=== PATIENT | male | born 1990 | race Hispanic/Latino ===

== ENCOUNTER 2017-06-30 13:14 | Emergency (ER) | payer OTHER ==
[2017-06-30 13:15] VITALS: BMI 22.5
--- NOTE | 2017-06-30 13:42 | ED PDOC ---
Arrival/HPI - General Chief Complaint: Lower Extremity Problem/Injury Time Seen by Provider: 06/30/17 13:15 Historian: Patient - History of Present Illness Narrative History of Present Illness (Text): 06/30/17 13:41 26 year old male, whose past medical history includes left ankle surgery and heart murmur, who presents to the emergency department complaining of L knee pain x 2 days. Patient states came down on leg awkwardly while playing basketball, has had pain since that moment, ambulating since then but contines to have pain and swelling of the knee. Denies fever, cough, dyspnea, chest pain , previous DVT/PE, recent travel or surgery. Past Medical History - Provider Review Nursing Documentation Reviewed: Yes - Past History Past History: Non-Contributing - Infectious Disease Hx of Infectious Diseases: None - Tetanus Immunization Tetanus Immunization: Unknown - Cardiac Hx Cardiac Disorders: Yes Hx Heart Murmur: Yes - Neurological Other/Comment: Lymes - Psychiatric Hx Substance Use: Yes ([facility]) - Surgical History Hx Orthopedic Surgery: Yes (Left ankle) Family/Social History Family/Social History: No Known Family HX Smoking Status: Light Smoker < 10 Cigarettes Daily Hx Alcohol Use: Yes Frequency of alcohol use: Few days per week Hx Substance Use: Yes ([facility]) Allergies/Home Meds Allergies/Adverse Reactions: Allergies Penicillins Allergy (Verified 06/30/17 13:31) ANAPHYLAXIS Home Medications: Home Meds Medication Instructions Recorded Confirmed No Known Home Med 06/30/17 06/30/17 Review of Systems - Physician Review All systems were reviewed & negative as marked: Yes - Review of Systems Constitutional: absent: Fevers Respiratory: absent: SOB Physical Exam - Physical Exam Narrative Physical Exam (Text): Gen: NAD Head: NC Eyes: No scleral icterus ENT: MMM CV: Regular rate Resp: No accessory muscle use Skin: No cellulitis or ecchymosis. Extremities: L knee swelling and tenderness medically and to patella. Limited range of motion secondary to pain and swelling but able to range. Neuro: Alert, moves all extremities Vital Signs Temp Pulse Resp BP Pulse Ox 06/30/17 13:26 97.8 F 76 17 107/67 97 Medical Decision Making ED Course and Treatment: XR to exclude fracture. Toradol for pain. Advised f/u with Ortho for further evaluation and MRI for persistent pain. - RAD Interpretation Radiology Orders: 06/30/17 13:43 KNEE LEFT 2 VIEWS (AP & LAT) [RAD] Stat - Medication Orders Current Medication Orders: Discontinued Medications Ketorolac Tromethamine (Toradol) 60 mg IM STAT STA Stop: 06/30/17 13:43 Disposition/Present on Arrival - Present on Arrival Any Indicators Present on Arrival: No History of DVT/PE: No History of Uncontrolled Diabetes: No Urinary Catheter: No History of Decub. Ulcer: No History Surgical Site Infection Following: None - Disposition Have Diagnosis and Disposition been Completed?: Yes Diagnosis: Knee injury Disposition: HOME/ ROUTINE Disposition Time: 14:28 Patient Plan: Discharge Condition: STABLE Discharge Instructions (ExitCare): Knee Pain Additional Instructions: Accession No. : [id number] Patient Name / ID : RUDI BLAIR / [id number] Exam Date : 06/30/2017 13:55:42 ( Approved ) Study Comment : Sex / Age : M / 26Y Creator : Finesse Easley MD Dictator : Finesse Easley MD English Composition Instructor : Infrastructure Analyst : Finesse Easley MD Approver2 : Report Date : 06/30/2017 14:15:38 My Comment : PROCEDURE: Left Knee Radiographs. HISTORY: Pain. COMPARISON: None. FINDINGS: BONES: Normal. No fracture. JOINTS: Normal. No osteoarthritis. JOINT EFFUSION: None. OTHER FINDINGS: None. IMPRESSION: Normal radiographs of the left knee. Referrals: [facility] [place] [Outside] - Follow up with primary Forms: [employer]. (Surinamese), WORK NOTE
--- NOTE | 2017-06-30 14:17 | RAD ---
PROCEDURE: Left Knee Radiographs. HISTORY: Pain. COMPARISON: None. FINDINGS: BONES: Normal. No fracture. JOINTS: Normal. No osteoarthritis. JOINT EFFUSION: None. OTHER FINDINGS: None. IMPRESSION: Normal radiographs of the left knee.
[2017-06-30 16:16] VITALS: BP 112/75; PULSE 68; RESP 16; TEMP 98.1; O2SAT 99
== END 2017-06-30 14:30 | disposition home or self-care (01) ==
LOC: ED 13:14
DX: S89.92XA Unspecified injury of left lower leg, initial encounter (principal); Y93.67 Activity, basketball; F17.210 Nicotine dependence, cigarettes, uncomplicated
CPT/HCPCS: 73560; 96372; 99283; J1885

== ENCOUNTER 2017-09-10 16:46 | Observation (INO) | payer OTHER ==
[2017-09-10] MEDS ORDERED: Sodium Chloride 0.9% 1,000 ML IV STA (17:01)
[2017-09-10] MEDS ORDERED: Famotidine 20mg/50ml 20 MG/50 ML BAG IVPB STA (17:09)
--- NOTE | 2017-09-10 17:15 | ED PDOC ---
Arrival/HPI - General Chief Complaint: GI Problem Time Seen by Provider: 09/10/17 16:55 Historian: Patient - History of Present Illness Narrative History of Present Illness (Text): 09/10/17 17:07 27yr old male presents today with sudden onset of epigastric abdominal pain that started at 10pm last night. pt states the pain is sharp and constant. pt states around 1am he started having vomiting and diarrhea. pt states he has pain to the left upper back. denies chest pain. pt c/o subjective fevers/ chills. pt denies urinary symptoms. denies testicular pain. no headache, dizziness or weakness. no other complaints. pt states he took OTC medications for pain and vomiting. Time/Duration: Other (10pm last night) Past Medical History - Provider Review Nursing Documentation Reviewed: Yes - Travel History Have you recently traveled outside [place] w/in the past 3 mons?: No - Past History Past History: Non-Contributing - Infectious Disease Hx of Infectious Diseases: None - Tetanus Immunization Tetanus Immunization: Unknown - Cardiac Hx Cardiac Disorders: Yes Hx Heart Murmur: Yes - Neurological Other/Comment: Lymes - Psychiatric Hx Substance Use: Yes ([facility]) - Surgical History Hx Orthopedic Surgery: Yes (Left ankle) Family/Social History - Physician Review Nursing Documentation Reviewed: Yes Family/Social History: Unknown Family HX Smoking Status: Light Smoker < 10 Cigarettes Daily Hx Alcohol Use: Yes Hx Substance Use: Yes ([facility]) Allergies/Home Meds Allergies/Adverse Reactions: Allergies Penicillins Allergy (Verified 06/30/17 13:31) ANAPHYLAXIS Home Medications: Home Meds Medication Instructions Recorded Confirmed No Known Home Med 06/30/17 09/10/17 Review of Systems - Review of Systems Constitutional: Fevers. absent: Fatigue Respiratory: absent: SOB, Cough Cardiovascular: absent: Chest Pain, Palpitations Gastrointestinal: Abdominal Pain, Diarrhea, Nausea, Vomiting Genitourinary Male: absent: Dysuria, Frequency, Hematuria, Urinary Output Changes Musculoskeletal: Back Pain. absent: Arthralgias, Neck Pain Skin: absent: Rash, Pruritis Neurological: absent: Headache, Dizziness Psychiatric: absent: Anxiety, Depression, Suicidal Ideation Physical Exam Vital Signs Reviewed: Yes Vital Signs Temp Pulse Resp BP Pulse Ox 09/10/17 23:37 55 L 16 116/66 96 09/10/17 21:52 59 L 20 134/73 100 09/10/17 17:12 98.8 F 70 18 130/69 99 Temperature: Afebrile Blood Pressure: Normal Pulse: Regular Respiratory Rate: Normal Appearance: Positive for: Well-Appearing, Non-Toxic, Comfortable Pain Distress: None Mental Status: Positive for: Alert and Oriented X 3 - Systems Exam Head: Present: Atraumatic Mouth: Present: Moist Mucous Membranes Neck: Present: Normal Range of Motion Respiratory/Chest: Present: Clear to Auscultation, Good Air Exchange. No: Respiratory Distress, Accessory Muscle Use Cardiovascular: Present: Regular Rate and Rhythm, Normal S1, S2. No: Murmurs Abdomen: Present: Tenderness (+ epigastric, ruq, luq tenderness), Normal Bowel Sounds. No: Distention, Rebound, Guarding Back: Present: Normal Inspection. No: CVA Tenderness, Midline Tenderness, Paraspinal Tenderness Upper Extremity: Present: Normal Inspection Neurological: Present: GCS=15 Skin: Present: Warm, Dry, Normal Color. No: Rashes Psychiatric: Present: Alert, Oriented x 3 Medical Decision Making ED Course and Treatment: 09/10/17 17:16 Patient is nontoxic well appearing with stable vital signs presenting with ruq/ luq and epigastric abdominal pain CBC: wnl CMP: wnl Lipase: wnl EKG: Normal sinus rhythm at 64 bpm. With Urinalysis + ketones CAT scan: FINDINGS: LOWER THORAX: Unremarkable. LIVER: Unremarkable. No gross lesion or ductal dilatation. GALLBLADDER AND BILE DUCTS: Unremarkable. PANCREAS: Unremarkable. No gross lesion or ductal dilatation. SPLEEN: Unremarkable. ADRENALS: Unremarkable. No mass. KIDNEYS AND URETERS: Unremarkable. No hydronephrosis. No solid mass. VASCULATURE: Unremarkable. No aortic aneurysm. BOWEL: Mildly dilated proximal small bowel without focal point of obstruction. APPENDIX: No abnormalities to suggest acute appendicitis. No right lower quadrant inflammatory processes identified. PERITONEUM: Unremarkable. No free fluid. No free air. LYMPH NODES: Unremarkable. No enlarged lymph nodes. BLADDER: Unremarkable. REPRODUCTIVE: Unremarkable. BONES: No acute fracture. OTHER FINDINGS: None. IMPRESSION: Mildly dilated proximal small bowel without mechanical obstruction. Patient reassessment: pt with continued vomiting in er despite nausea mediations ; pt with continued abdominal pain despite toradol. pt refusing narcotic medications for pain. case discussed with dr. powell will admit observational status for surgical consult regarding intractable vomiting, dilated proximal small bowel. case discussed with medical csr case discussed with dr. carlin accepts observational status admission impression; intractable abdominal pain, intractable vomiting, abnormal ct abd/ pelvis admit observational status to med/surg 09/10/17 20:40 - Lab Interpretations Lab Results: 09/10/17 17:00 09/10/17 17:00 Lab Results 09/10/17 20:10: Urine Color yellow, Urine Appearance Clear, Urine pH 7.0, Ur Specific [place] <= 1.005, Urine Protein 30 H, Urine Glucose (UA) Negative, Urine Ketones 15 H, Urine Blood Negative, Urine Nitrate Negative, Urine Bilirubin Negative, Urine Urobilinogen 1.0 H, Ur Leukocyte Esterase Negative, Urine RBC 1 - 3, Urine WBC 2 - 5, Ur Epithelial Cells 3 - 4 09/10/17 17:00: WBC 11.1 H D, RBC 5.23, Hgb 15.9, Hct 44.3, MCV 84.7, MCH 30.4, MCHC 35.9, RDW 12.5, Plt Count 325, MPV 8.5, Gran % 74.2 H, Lymph % (Auto) 19.4 L, Callahan % (Auto) 5.9, Eos % (Auto) 0.3 L, Baso % (Auto) 0.2, Gran # 8.22 H, Lymph # (Auto) 2.2, Callahan # (Auto) 0.7 H, Eos # (Auto) 0.0, Baso # (Auto) 0.02 09/10/17 17:00: Sodium 143, Potassium 4.2, Chloride 101, Carbon Dioxide 26, Anion Gap 20, BUN 14, Creatinine 0.9, Est GFR ( Amer) > 60, Est GFR (Non- Af Amer) > 60, Random Glucose 127 H, Calcium 10.5, Total Bilirubin 0.6, AST 48, ALT 72 H, Alkaline Phosphatase 50, Total Protein 8.2, Albumin 5.0 H, Globulin 3.2, Albumin/Globulin Ratio 1.6, Lipase 47 - RAD Interpretation Radiology Orders: 09/10/17 17:01 CHEST PORTABLE [RAD] Stat 09/10/17 17:25 ABD & PELVIS IV CONTRAST ONLY [CT] Stat - Medication Orders Current Medication Orders: Heparin Sodium (Porcine) (Heparin) 5,000 units SC Q8 SANDI PRN Reason: Protocol Sodium Chloride (Sodium Chloride 0.9%) 1,000 mls @ 100 mls/hr IV .Q10H SANDI Last Admin: 09/10/17 22:10 Dose: 100 mls/hr eMAR Start Stop Document 09/10/17 22:10 RG (Rec: 09/10/17 22:33 RG [id number]) Intravenous Solution Start Date 09/10/17 Start Time 22:10 Ondansetron HCl (Zofran Inj) 4 mg IVP Q4H PRN PRN Reason: Nausea/Vomiting Pantoprazole Sodium (Protonix Inj) 40 mg IVP DAILY SANDI Discontinued Medications Sodium Chloride (Sodium Chloride 0.9%) 1,000 mls @ 999 mls/hr IV .Q1H1M STA Stop: 09/10/17 18:01 Last Admin: 09/10/17 17:20 Dose: 999 mls/hr eMAR Start Stop Document 09/10/17 17:20 GMD (Rec: 09/10/17 17:20 GMD [id number]) Intravenous Solution Start Date 09/10/17 Start Time 17:20 End Date 09/10/17 End time 18:20 Total Infusion Time 60 Famotidine (Pepcid 20mg/50ml Premix) 20 mg in 50 mls @ 200 mls/hr IVPB STAT STA Stop: 09/10/17 17:23 Last Admin: 09/10/17 17:19 Dose: 200 mls/hr eMAR Start Stop Document 09/10/17 17:19 GMD (Rec: 09/10/17 17:19 GMD [id number]) Intravenous Solution Start Date 09/10/17 Start Time 17:19 End Date 09/10/17 End time 17:34 Total Infusion Time 15 Ketorolac Tromethamine (Toradol) 30 mg IVP STAT STA Stop: 09/10/17 19:08 Last Admin: 09/10/17 19:47 Dose: 30 mg MAR Pain Assessment Document 09/10/17 19:47 RG (Rec: 09/10/17 19:48 RG [id number]) Pain Reassessment Is this a pain reassessment? Yes Presence of Pain Presence of Pain Yes Pain Scale Used Pain Scale Used Numeric Location Upper or Lower Upper Pain Location Body Site Abdomen Description Description Intermittent Pain Behavior Rubbing Site Alleviating Factors/Management Position Change Techniques IVP Administration Document 09/10/17 19:47 RG (Rec: 09/10/17 19:48 [facility] [id number]) Charges for Administration # of IVP Administrations 1 Ondansetron HCl (Zofran Inj) 4 mg IVP STAT STA Stop: 09/10/17 17:02 Last Admin: 09/10/17 17:19 Dose: 4 mg IVP Administration Document 09/10/17 17:19 GMD (Rec: 09/10/17 17:19 GMD [id number]) Charges for Administration # of IVP Administrations 1 Ondansetron HCl (Zofran Inj) 4 mg IVP STAT STA Stop: 09/10/17 20:19 Last Admin: 09/10/17 22:00 Dose: 4 mg IVP Administration Document 09/10/17 22:00 RG (Rec: 09/10/17 22:32 RG [id number]) Charges for Administration # of IVP Administrations 1 Disposition/Present on Arrival - Present on Arrival Any Indicators Present on Arrival: No History of DVT/PE: No History of Uncontrolled Diabetes: No Urinary Catheter: No History of Decub. Ulcer: No History Surgical Site Infection Following: None - Disposition Have Diagnosis and Disposition been Completed?: Yes Diagnosis: Intractable abdominal pain, Intractable vomiting Disposition: HOSPITALIZED Disposition Time: 20:00 Patient Plan: Observation Condition: FAIR
--- NOTE | 2017-09-10 17:18 | RAD ---
HISTORY: Abdominal pain COMPARISON: No prior. FINDINGS: LUNGS: No active pulmonary disease. PLEURA: No significant pleural effusion identified, no pneumothorax apparent. CARDIOVASCULAR: Normal. OSSEOUS STRUCTURES: No significant abnormalities. VISUALIZED UPPER ABDOMEN: Normal. OTHER FINDINGS: None. IMPRESSION: No active disease.
[2017-09-10 17:28] LABS: BASO # 0.02 K/mm3 (0.0-2.0); BASO % 0.2 % (0.0-3.0); EOS % 0.3 % (1.5-5.0); GRAN # 8.22 (1.4-6.5); GRAN % 74.2 % (50.0-68.0); HEMOGLOBIN 15.9 g/dL (14.0-18.0); LYMPH # 2.2 (1.2-3.4); LYMPH % 19.4 % (22.0-35.0); MEAN CELL VOLUME 84.7 fl (80.0-105.0); MEAN CORPUSCULAR HEMOGLOBIN 30.4 pg (25.0-35.0); MEAN CORPUSCULAR HGB CONC 35.9 g/dl (31.0-37.0); MEAN PLATELET VOLUME 8.5 fl (7.0-11.0); MONO # 0.7 (0.1-0.6); MONO % 5.9 % (1.0-6.0); RBC 5.23 10^6/uL (3.5-6.1); RED CELL DISTRIBUTION WIDTH 12.5 % (11.5-14.5); WHITE BLOOD COUNT 11.1 10^3/ul (4.5-11.0)
[2017-09-10 17:36] LABS: ALB/GLOB RATIO 1.6 (1.1-1.8); ALT/SGPT 72 U/L (7-56); AST/SGOT 48 U/L (17-59); BLOOD UREA NITROGEN 14 mg/dL (7-21); CALCIUM 10.5 mg/dL (8.4-10.5); GFR AFRICAN-AMERICAN > 60; GFR NON-AFRICAN AMERICAN > 60; LIPASE 47 U/L (23-300)
[2017-09-10] MEDS ORDERED: Iohexol 350 MG/100 ML VIAL ONE (17:54)
--- NOTE | 2017-09-10 19:01 | CT ---
PROCEDURE: CT Abdomen and Pelvis with contrast HISTORY: Severe stomach and abdominal pain. COMPARISON: None. TECHNIQUE: Contrast dose: 100 cc Omnipaque 350 Radiation dose: Total exam DLP = 469.81 mGy-cm. This CT exam was performed using one or more of the following dose reduction techniques: Automated exposure control, adjustment of the mA and/or kV according to patient size, and/or use of iterative reconstruction technique. FINDINGS: LOWER THORAX: Unremarkable. LIVER: Unremarkable. No gross lesion or ductal dilatation. GALLBLADDER AND BILE DUCTS: Unremarkable. PANCREAS: Unremarkable. No gross lesion or ductal dilatation. SPLEEN: Unremarkable. ADRENALS: Unremarkable. No mass. KIDNEYS AND URETERS: Unremarkable. No hydronephrosis. No solid mass. VASCULATURE: Unremarkable. No aortic aneurysm. BOWEL: Mildly dilated proximal small bowel without focal point of obstruction. APPENDIX: No abnormalities to suggest acute appendicitis. No right lower quadrant inflammatory processes identified. PERITONEUM: Unremarkable. No free fluid. No free air. LYMPH NODES: Unremarkable. No enlarged lymph nodes. BLADDER: Unremarkable. REPRODUCTIVE: Unremarkable. BONES: No acute fracture. OTHER FINDINGS: None. IMPRESSION: Mildly dilated proximal small bowel without mechanical obstruction.
[2017-09-10 20:25] LABS: URINE BILIRUBIN NEGATIVE (NEGATIVE); URINE BLOOD NEGATIVE (NEGATIVE); URINE GLUCOSE (UA) NEGATIVE (NEGATIVE); URINE LEUKOCYTE ESTERASE NEGATIVE Leu/uL (NEGATIVE); URINE PROTEIN 30 mg/dL (<30 mg/dL)
[2017-09-10 20:31] LABS: URINE APPEARANCE CLEAR (CLEAR)
--- NOTE | 2017-09-10 21:38 | CARD ---
APPROVED REPORT EKG Measurement Heart [id number] <Conclusion> Normal sinus rhythm Possible Left atrial enlargement Rightward axis Borderline ECG
[2017-09-10] MEDS: Sodium Chloride 0.9% 1,000 ML IV SCH (22:10)
--- NOTE | 2017-09-11 00:34 | CP.PCM.HP ---
<Steven Guthrie - Last Filed: 09/11/17 00:34> History of Present Illness - History of Present Illness History of Present Illness: CC: abominal pain HPI: 27 year old male with no past medical history who presents with 24 hour history of mid epigastric abdominal pain. Pain is reported as sharp intermittent pain. Patient reports nausea, vomiting NBNB emesis. Able to tolerate liquids but unable to tolerate solids. Reports episodes of diarrhea, one episode of fever 101F at home. Patient denies he has these episodes about once a month where he has mid epigastric discomfort and inability to tolerate PO intake. Patient eats mostly meat and pasta and avoids fruits and vegetables. 12 point ROS benign other than mentioned in HPI. ED COURSE: Patient given IV zofran, toradol and abdominal CT is unremarkable except for proximal small bowel dilatation without mechanical obstruction. PMH: Denies PSH: Denies SOCHX: Tobacco: 0.5 PPD, ETOH: 14 beers a week, ID: THC ALL: PCN MEDS: Denies Present on Admission - Present on Admission Any Indicators Present on Admission: No Review of Systems - Review of Systems All systems: reviewed and no additional remarkable complaints except (as mentioned in HPI) Past Patient History - Infectious Disease Hx of Infectious Diseases: None - Tetanus Immunizations Tetanus Immunization: Unknown - Past Social History Smoking Status: Light Smoker < 10 Cigarettes Daily - CARDIAC Hx Cardiac Disorders: Yes Hx Heart Murmur: Yes - NEUROLOGICAL Other/Comment: Lymes - PSYCHIATRIC Hx Substance Use: Yes ([facility]) - SURGICAL HISTORY Hx Orthopedic Surgery: Yes (Left ankle) Meds Allergies/Adverse Reactions: Allergies Allergy/AdvReac Type Severity Reaction Status Date / Time Penicillins Allergy ANAPHYLAXIS Verified 06/30/17 13:31 Physical Exam - Constitutional Appears: Non-toxic - Head Exam Head Exam: ATRAUMATIC, NORMAL INSPECTION, NORMOCEPHALIC - Eye Exam Eye Exam: EOMI, PERRL - ENT Exam ENT Exam: Mucous Membranes Moist - Respiratory Exam Respiratory Exam: Clear to Auscultation Bilateral, NORMAL BREATHING PATTERN. absent: Rhonchi, Wheezes - Cardiovascular Exam Cardiovascular Exam: REGULAR RHYTHM, +S1, +S2, Systolic Murmur - GI/Abdominal Exam GI & Abdominal Exam: Diminished Bowel Sounds, Guarding, Soft, Tenderness (mid epigastric). absent: Distended, Firm - Extremities Exam Extremities exam: Positive for: normal capillary refill, pedal pulses present. Negative for: calf tenderness, tenderness - Back Exam Back exam: absent: CVA tenderness (L), CVA tenderness (R), paraspinal tenderness , vertebral tenderness - Neurological Exam Neurological exam: Alert, CN II-XII Intact, Normal Gait, Oriented x3, Reflexes Normal - Psychiatric Exam Psychiatric exam: Normal Affect, Normal Mood - Skin Skin Exam: Dry, Warm Additional comments: Multiple tattoos present Results - Vital Signs Recent Vital Signs: Last Vital Signs Temp 98.8 F 09/10/17 17:12 Pulse 55 L 09/10/17 23:37 Resp 16 09/10/17 23:37 BP 116/66 09/10/17 23:37 Pulse Ox 96 09/10/17 23:37 - Labs Result Diagrams: 09/10/17 17:00 09/10/17 17:00 Assessment & Plan - Assessment and Plan (Free Text) Assessment: 27 year old male with no past medical history who presents with 24 hour history of mid epigastric abdominal pain. Abdominal/Pelvis CT showing proximal small bowel dilatation without obstruction. Patient admitted for gastroenteritis. Plan: 1. Gastroenteritis - Afebrile, WBC 11.1, n/v, diarrhea - Abdominal/Pelvis CT showing: - Mildly dilated proximal small bowel without mechanical obstruction - Clear Liquid diet, advance as tolerated - Zofran 4mg q4H - Avoid opiate medication for pain at patient request 2. Hx of opiate abuse - UDS DVT ppx: Heparin SC GI ppx: Protonix - Date & Time Date: 09/11/17 Time: 11:00 <Dionisio Herring - Last Filed: 09/12/17 00:07> Results - Vital Signs Recent Vital Signs: Last Vital Signs Temp 98.2 F 09/11/17 01:22 Pulse 58 L 09/11/17 01:22 Resp 20 09/11/17 01:22 BP 137/85 09/11/17 01:22 Pulse Ox 96 09/10/17 23:37 - Labs Result Diagrams: 09/11/17 06:45 09/11/17 06:45
[2017-09-11 03:25] VITALS: BMI 22.7
[2017-09-11 07:15] LABS: BASO # 0.05 K/mm3 (0.0-2.0); BASO % 0.7 % (0.0-3.0); EOS # 0.1 (0.0-0.7); EOS % 1.6 % (1.5-5.0); GRAN # 4.72 (1.4-6.5); GRAN % 61.4 % (50.0-68.0); HEMOGLOBIN 14.7 g/dL (14.0-18.0); LYMPH # 2.2 (1.2-3.4); LYMPH % 28.6 % (22.0-35.0); MEAN CELL VOLUME 85.6 fl (80.0-105.0); MEAN CORPUSCULAR HEMOGLOBIN 29.8 pg (25.0-35.0); MEAN CORPUSCULAR HGB CONC 34.8 g/dl (31.0-37.0); MEAN PLATELET VOLUME 8.5 fl (7.0-11.0); MONO # 0.6 (0.1-0.6); MONO % 7.7 % (1.0-6.0); RBC 4.93 10^6/uL (3.5-6.1); RED CELL DISTRIBUTION WIDTH 12.8 % (11.5-14.5); WHITE BLOOD COUNT 7.7 10^3/ul (4.5-11.0)
[2017-09-11 07:33] LABS: INR 1.14 (0.93-1.08); PROTHROMBIN TIME 13.1 SECONDS (9.4-12.5)
[2017-09-11 07:37] LABS: ALB/GLOB RATIO 1.6 (1.1-1.8); ALBUMIN 4.5 g/dL (3.0-4.8); ALT/SGPT 63 U/L (7-56); AST/SGOT 44 U/L (17-59); BLOOD UREA NITROGEN 13 mg/dL (7-21); CALCIUM 9.7 mg/dL (8.4-10.5); GFR AFRICAN-AMERICAN > 60; GFR NON-AFRICAN AMERICAN > 60
[2017-09-11] MEDS: Sodium Chloride 0.9% 1,000 ML IV SCH (09:17)
[2017-09-11 12:09] LABS: HEPATITIS B SURFACE AG Negative (NEGATIVE)
[2017-09-11 12:15] LABS: HEPATITIS A IGM NEGATIVE (NEGATIVE); HEPATITIS B CORE AB NEGATIVE (NEGATIVE)
[2017-09-11 12:27] LABS: HEPATITIS C ANTIBODY NEGATIVE (NEGATIVE)
--- NOTE | 2017-09-11 13:04 | CP.PCM.CON ---
<Nikki Warren - Last Filed: 09/11/17 19:51> History of Present Illness - History of Present Illness History of Present Illness: Seen and examined at the bedside earlier today, chart reviewed. Request for GI consult is for small bowel dilatation. HPI: This is a 27-year-old male with no pertinent past medical history came to the emergency room with complaints of worsening epigastric abdominal pain. The patient reported that Thursday night at 9 PM started developing sharp epigastric pain. Patient recalls eating at night only cheeseburger that was fully cooked as per patient. Around 1:30 AM he experienced nausea, vomiting, diarrhea as well as fever of 101 at home. Patient continued to have the pain and was not being relieved came to the emergency room. He reports vomiting at least 20 times with combination of gagging and and vomitus. This morning he reported only being able to tolerate half of an apple juice, he vomited and noticed small amount of "specks" of blood. he does endorse having symptoms of heartburn, takes Tums, he has chronic use of NSAIDs, he takes this for his knee pain he recently had an ACL tear, but states that he play sports and always takes NSAIDs. He also drinks at least 2 beers daily since he was young. he does reports stomach flareups intermittently, usually at night and may get an episode of diarrhea he does not really notice any bleeding because as per patient he does not check. Complains of about 10 pound weight loss since he had injury to his knee. He endorses that his mother has Crohn's disease as well as uncles. On admission he had a CT scan of abdomen and pelvis which reported a mildly dilated proximal small bowel without mechanical obstruction. Patient since admission and has not had any episodes of diarrhea. Past medical history: ACL tear, heartburn, hear murmur Surgical history: Denies cardiac or abdominal surgery, never had EGD or colonoscopy Allergies: Penicillin Medications: Reviewed as per MAR Family history: Mother with Crohn's disease, uncles with Crohn disease, as per patient his father is adopted they are not aware of his family history Social history: Patient smokes half a pack a day, patient does junk about 2 beers a day for many years now, patient endorses he smokes marijuana loss smoke was yesterday ROS: Systems review is positive finding see HPI Past Patient History - Infectious Disease Hx of Infectious Diseases: None - Tetanus Immunizations Tetanus Immunization: Unknown - Past Social History Smoking Status: Light Smoker < 10 Cigarettes Daily - CARDIAC Hx Cardiac Disorders: Yes Hx Heart Murmur: Yes - NEUROLOGICAL Other/Comment: Lymes - MUSCULOSKELETAL/RHEUMATOLOGICAL Hx Falls: No - PSYCHIATRIC Hx Substance Use: Yes ([facility]) - SURGICAL HISTORY Hx Orthopedic Surgery: Yes (Left ankle) Meds Allergies/Adverse Reactions: Allergies Allergy/AdvReac Type Severity Reaction Status Date / Time Penicillins Allergy ANAPHYLAXIS Verified 06/30/17 13:31 - Medications Medications: Current Medications Sodium Chloride (Sodium Chloride 0.9%) 1,000 mls @ 100 mls/hr IV .Q10H [facility] Last Admin: 09/11/17 09:17 Dose: 100 mls/hr Ondansetron HCl (Zofran Inj) 4 mg IVP Q4H PRN PRN Reason: Nausea/Vomiting Last Admin: 09/11/17 10:59 Dose: 4 mg Pantoprazole Sodium (Protonix Inj) 40 mg IVP DAILY [facility] Last Admin: 09/11/17 09:12 Dose: 40 mg Physical Exam - Constitutional Appears: No Acute Distress - Head Exam Head Exam: NORMOCEPHALIC - Eye Exam Eye Exam: Normal appearance. absent: Scleral icterus - ENT Exam ENT Exam: Mucous Membranes Moist - Neck Exam Neck exam: Positive for: Normal Inspection - Respiratory Exam Respiratory Exam: NORMAL BREATHING PATTERN. absent: Respiratory Distress - Cardiovascular Exam Cardiovascular Exam: +S1, +S2 - GI/Abdominal Exam GI & Abdominal Exam: Normal Bowel Sounds, Soft, Tenderness (epigastric). absent : Distended, Guarding, Organomegaly, Rebound - Extremities Exam Extremities exam: Positive for: pedal pulses present. Negative for: calf tenderness, pedal edema - Neurological Exam Neurological exam: Alert, Oriented x3 - Skin Skin Exam: Dry, Warm Results - Vital Signs Recent Vital Signs: Last Vital Signs Temp 98 F 09/11/17 06:00 Pulse 43 L 09/11/17 06:00 Resp 18 09/11/17 06:00 BP 137/81 09/11/17 06:00 Pulse Ox 97 09/11/17 06:00 - Labs Result Diagrams: 09/11/17 06:45 09/11/17 06:45 Labs: Laboratory Results - last 24 hr 09/11/17 09/11/17 09/11/17 06:45 06:45 06:45 WBC 7.7 D RBC 4.93 Hgb 14.7 Hct 42.2 MCV 85.6 MCH 29.8 MCHC 34.8 RDW 12.8 Plt Count 267 MPV 8.5 Gran % 61.4 Lymph % (Auto) 28.6 [place] % (Auto) 7.7 H Eos % (Auto) 1.6 Baso % (Auto) 0.7 Gran # 4.72 Lymph # (Auto) 2.2 [place] # (Auto) 0.6 Eos # (Auto) 0.1 Baso # (Auto) 0.05 PT 13.1 H INR 1.14 H Sodium 144 Potassium 4.4 Chloride 105 Carbon Dioxide 25 Anion Gap 18 BUN 13 Creatinine 0.9 Est GFR ( Amer) > 60 Est GFR (Non-Af Amer) > 60 Random Glucose 115 H Calcium 9.7 Total Bilirubin 0.7 AST 44 ALT 63 H Alkaline Phosphatase 44 Total Protein 7.2 Albumin 4.5 Globulin 2.7 Albumin/Globulin Ratio 1.6 Assessment & Plan - Assessment and Plan (Free Text) Assessment: Assessment: Epigastric Pain, status post CT scan showing small bowel dilatation no mechanical obstruction, differentials to consider his peptic ulcer disease Probable gastroenteritis History of NSAID use torn ACL Chronic alcohol use Plan: Clear liquid as tolerated Continue PPI Avoid NSAIDs Monitor H&H and for overt GI bleed Decrease alcohol intake Discussed with patient he would benefit from endoscopy and colonoscopy with history of NSAID use and heartburn as well as intermittent diarrhea and family history of Crohn's disease. Case discussed with medical team. Thank you for this consult and for allowing us to participate in the patient's care, further recommendations based upon clinical course. Seen and discussed with Dr. Rasheed. ADDEDNEUM: started on IV antibiotics: see order, blood culture prior to start of antibiotics. <Mariangel Rasheed V - Last Filed: 09/12/17 03:19> Meds - Medications Medications: Current Medications Sodium Chloride (Sodium Chloride 0.9%) 1,000 mls @ 100 mls/hr IV .Q10H [facility] Last Admin: 09/11/17 09:17 Dose: 100 mls/hr Metronidazole (Flagyl) 500 mg in 100 mls @ 100 mls/hr IVPB Q8 [facility] PRN Reason: Protocol Last Admin: 09/11/17 22:33 Dose: 100 mls/hr Levofloxacin/Dextrose (Levaquin 500mg) 500 mg in 100 mls @ 100 mls/hr IVPB DAILY [facility] PRN Reason: Protocol Last Admin: 09/11/17 21:30 Dose: 100 mls/hr Ondansetron HCl (Zofran Inj) 4 mg IVP Q4H PRN PRN Reason: Nausea/Vomiting Last Admin: 09/11/17 10:59 Dose: 4 mg Pantoprazole Sodium (Protonix Inj) 40 mg IVP DAILY [facility] Last Admin: 09/11/17 09:12 Dose: 40 mg Results - Vital Signs Recent Vital Signs: Last Vital Signs Temp 98.1 F 09/11/17 22:00 Pulse 56 L 09/11/17 22:00 Resp 16 09/11/17 22:00 BP 119/73 09/11/17 22:00 Pulse Ox 99 09/11/17 22:00 - Labs Result Diagrams: 09/11/17 06:45 09/11/17 06:45 Labs: Laboratory Results - last 24 hr 09/11/17 09/11/17 09/11/17 06:45 06:45 06:45 WBC 7.7 D RBC 4.93 Hgb 14.7 Hct 42.2 MCV 85.6 MCH 29.8 MCHC 34.8 RDW 12.8 Plt Count 267 MPV 8.5 Gran % 61.4 Lymph % (Auto) 28.6 [place] % (Auto) 7.7 H Eos % (Auto) 1.6 Baso % (Auto) 0.7 Gran # 4.72 Lymph # (Auto) 2.2 [place] # (Auto) 0.6 Eos # (Auto) 0.1 Baso # (Auto) 0.05 PT 13.1 H INR 1.14 H Sodium 144 Potassium 4.4 Chloride 105 Carbon Dioxide 25 Anion Gap 18 BUN 13 Creatinine 0.9 Est GFR ( Amer) > 60 Est GFR (Non-Af Amer) > 60 Random Glucose 115 H Calcium 9.7 Total Bilirubin 0.7 AST 44 ALT 63 H Alkaline Phosphatase 44 Total Protein 7.2 Albumin 4.5 Globulin 2.7 Albumin/Globulin Ratio 1.6 Urine Color Urine Appearance Urine pH Ur Specific [place] Urine Protein Urine Glucose (UA) Urine Ketones Urine Blood Urine Nitrate Urine Bilirubin Urine Urobilinogen Ur Leukocyte Esterase Urine RBC Urine WBC 09/11/17 10:10 WBC RBC Hgb Hct MCV MCH MCHC RDW Plt Count MPV Gran % Lymph % (Auto) [place] % (Auto) Eos % (Auto) Baso % (Auto) Gran # Lymph # (Auto) [place] # (Auto) Eos # (Auto) Baso # (Auto) PT INR Sodium Potassium Chloride Carbon Dioxide Anion Gap BUN Creatinine Est GFR ( Amer) Est GFR (Non-Af Amer) Random Glucose Calcium Total Bilirubin AST ALT Alkaline Phosphatase Total Protein Albumin Globulin Albumin/Globulin Ratio Urine Color Yellow Urine Appearance Sl cloudy Urine pH 6.5 Ur Specific [place] 1.020 Urine Protein Trace H Urine Glucose (UA) Negative Urine Ketones 15 H Urine Blood Negative Urine Nitrate Negative Urine Bilirubin Small H Urine Urobilinogen 1.0 H Ur Leukocyte Esterase Trace H Urine RBC 0 - 2 Urine WBC 5 - 10 Attending/Attestation - Attestation I have personally seen and examined this patient.: Yes I have fully participated in the care of the patient.: Yes I have reviewed all pertinent clinical information: Yes Notes (Text): p 09/12/17 03:18
--- NOTE | 2017-09-11 13:30 | CP.PCM.PN ---
<Madhu Lopez - Last Filed: 09/11/17 16:45> Subjective - Date & Time of Evaluation Date of Evaluation: 09/11/17 Time of Evaluation: 09:00 - Subjective Subjective: PGY1 Medicine Note for Dr. Traylor Patient seen and examined at bedside this morning. Patient just vomited after drinking some apple juice. There were small streaks of blood but no gross hematemesis. Patient is still nauseous and has not received any nausea medicine. His abdominal pain is no longer sharp but feels like pressure. The pressure was limited to his epigastric region prior to drinking the apple but now it has worsened. The pressure has began to spread and now takes his entire upper portion of his abdomen. Patient has not had a bowel movement since being admitted. Objective - Vital Signs/Intake and Output Vital Signs (last 24 hours): Temp Pulse Resp BP Pulse Ox 98 F 43 L 18 137/81 97 09/11/17 06:00 09/11/17 06:00 09/11/17 06:00 09/11/17 06:00 09/11/17 06:00 Intake and Output: 09/11/17 09/11/17 06:59 18:59 Intake Total 900 Output Total 0 Balance 900 - Medications Medications: Current Medications Sodium Chloride (Sodium Chloride 0.9%) 1,000 mls @ 100 mls/hr IV .Q10H [facility] Last Admin: 09/11/17 09:17 Dose: 100 mls/hr Ondansetron HCl (Zofran Inj) 4 mg IVP Q4H PRN PRN Reason: Nausea/Vomiting Last Admin: 09/11/17 10:59 Dose: 4 mg Pantoprazole Sodium (Protonix Inj) 40 mg IVP DAILY [facility] Last Admin: 09/11/17 09:12 Dose: 40 mg - Labs Labs: 09/11/17 06:45 09/11/17 06:45 PT 13.1 SECONDS (9.4-12.5) H 09/11/17 06:45 INR 1.14 (0.93-1.08) H 09/11/17 06:45 - Constitutional Appears: Non-toxic, No Acute Distress - Head Exam Head Exam: ATRAUMATIC, NORMOCEPHALIC - Eye Exam Eye Exam: EOMI, Normal appearance - ENT Exam ENT Exam: Mucous Membranes Moist - Neck Exam Neck Exam: absent: Lymphadenopathy, Tenderness - Respiratory Exam Respiratory Exam: Clear to Ausculation Bilateral, NORMAL BREATHING PATTERN. absent: Accessory Muscle Use, Rales, Rhonchi, Wheezes, Respiratory Distress - Cardiovascular Exam Cardiovascular Exam: REGULAR RHYTHM, +S1, +S2 - GI/Abdominal Exam GI & Abdominal Exam: Guarding, Soft, Tenderness (epigastric), Normal Bowel Sounds. absent: Distended, Firm, Rigid - Extremities Exam Extremities Exam: absent: Calf Tenderness, Pedal Edema - Back Exam Back Exam: absent: CVA tenderness (L), CVA tenderness (R) - Neurological Exam Neurological Exam: Alert, Awake, CN II-XII Intact, Oriented x3 - Psychiatric Exam Psychiatric exam: Normal Affect, Normal Mood - Skin Skin Exam: Dry, Warm Assessment and Plan - Assessment and Plan (Free Text) Assessment: 27 year old male with no past medical history who presents with 24 hour history of mid epigastric abdominal pain. Abdominal/Pelvis CT showing proximal small bowel dilatation without obstruction. Patient admitted for gastroenteritis. Plan: 1. Gastroenteritis - Afebrile, WBC 7.7 - Patient experienced nausea and vomiting this morning after attempting to drink apple juice. He vomited the apple juice only with some specks of red blood , believed to be secondary to retching. Patient was made NPO after this throughout day, given zofran. Patient was re-evaluated a few hours later stating that his abdominal pain had resolved and he was no longer nausea. He requested food. Will attempt clear liquid diet again. - Abdominal/Pelvis CT showing: - Mildly dilated proximal small bowel without mechanical obstruction - Hep panel negative - HIV - f/u - Clear Liquid diet, advance as tolerated - Zofran 4mg q4H - Avoid opiate medication for pain at patient request 2. Hx of opiate abuse - UDS DVT ppx: Heparin SC GI ppx: Protonix Case discussed with Dr. Layton Leung John PGY1 <Jocelyn Traylor - Last Filed: 09/11/17 17:37> Objective - Vital Signs/Intake and Output Vital Signs (last 24 hours): Temp Pulse Resp BP Pulse Ox 98 F 43 L 18 137/81 97 09/11/17 06:00 09/11/17 06:00 09/11/17 06:00 09/11/17 06:00 09/11/17 06:00 Intake and Output: 09/11/17 09/11/17 06:59 18:59 Intake Total 900 Output Total 0 Balance 900 - Medications Medications: Current Medications Sodium Chloride (Sodium Chloride 0.9%) 1,000 mls @ 100 mls/hr IV .Q10H [facility] Last Admin: 09/11/17 09:17 Dose: 100 mls/hr Ondansetron HCl (Zofran Inj) 4 mg IVP Q4H PRN PRN Reason: Nausea/Vomiting Last Admin: 09/11/17 10:59 Dose: 4 mg Pantoprazole Sodium (Protonix Inj) 40 mg IVP DAILY [facility] Last Admin: 09/11/17 09:12 Dose: 40 mg - Labs Labs: 09/11/17 06:45 09/11/17 06:45 PT 13.1 SECONDS (9.4-12.5) H 09/11/17 06:45 INR 1.14 (0.93-1.08) H 09/11/17 06:45 Attending/Attestation - Attestation I have personally seen and examined this patient.: Yes I have fully participated in the care of the patient.: Yes I have reviewed all pertinent clinical information, including history, physical exam and plan: Yes Notes (Text): 09/11/17 17:35 Attending note; Patient seen and examined with resident. Patient is a 27-year-old male with a past medical history of epigastric discomfort, active smoking, alcohol abuse is admitted with abdominal discomfort. CT showed mild dilatation of the small bowel. Patient had one episode of emesis this morning with streak of blood. No active bleeding. Continue IV Protonix. Continue IV Zofran. GI evaluation requested. Started on clear liquid diet. Active smoking; smoking cessation is strongly advised. Active alcohol abuse; alcohol cessation is strongly advised. Strongly advised to avoid NSAIDs. Possible alcohol or NSAID-induced gastritis. We will treat empirically with PPI. Patient with family history of Crohn's disease in mother. Will benefit from outpatient EGD and colonoscopy. Upon discharge patient will follow-up with [facility] clinic.
[2017-09-11 14:00] LABS: PH,URINE 6.5 (4.7-8.0); URINE BILIRUBIN SMALL (NEGATIVE); URINE BLOOD NEGATIVE (NEGATIVE); URINE GLUCOSE (UA) NEGATIVE (NEGATIVE); URINE LEUKOCYTE ESTERASE TRACE Leu/uL (NEGATIVE); URINE PROTEIN TRACE mg/dL (<30 mg/dL)
[2017-09-11 14:03] LABS: URINE APPEARANCE SL CLOUDY (CLEAR); URINE COLOR YELLOW (YELLOW)
[2017-09-11 14:20] LABS: URINE RBC 0 - 2 /hpf (0-2)
[2017-09-11] MEDS ORDERED: levoFLOXacin 500 mg in D5W 500 MG/100 ML BAG IVPB SCH (20:00)
[2017-09-11] MEDS: metroNIDAZOLE IV 500 mg/100 ml 500 MG/100 ML BAG IVPB SCH (22:33)
[2017-09-12] MEDS: metroNIDAZOLE IV 500 mg/100 ml 500 MG/100 ML BAG IVPB SCH (06:09)
[2017-09-12 07:44] LABS: ALB/GLOB RATIO 1.4 (1.1-1.8); ALBUMIN 4.2 g/dL (3.0-4.8); ALT/SGPT 52 U/L (7-56); AST/SGOT 40 U/L (17-59); BLOOD UREA NITROGEN 12 mg/dL (7-21); CALCIUM 9.5 mg/dL (8.4-10.5); GFR AFRICAN-AMERICAN > 60; GFR NON-AFRICAN AMERICAN > 60
[2017-09-12 07:51] LABS: BASO # 0.04 K/mm3 (0.0-2.0); BASO % 0.6 % (0.0-3.0); EOS # 0.1 (0.0-0.7); EOS % 1.9 % (1.5-5.0); GRAN # 4.03 (1.4-6.5); GRAN % 55.7 % (50.0-68.0); HEMOGLOBIN 14.4 g/dL (14.0-18.0); LYMPH # 2.4 (1.2-3.4); LYMPH % 33.7 % (22.0-35.0); MEAN CELL VOLUME 85.7 fl (80.0-105.0); MEAN CORPUSCULAR HEMOGLOBIN 29.5 pg (25.0-35.0); MEAN CORPUSCULAR HGB CONC 34.4 g/dl (31.0-37.0); MEAN PLATELET VOLUME 8.8 fl (7.0-11.0); MONO # 0.6 (0.1-0.6); MONO % 8.1 % (1.0-6.0); RBC 4.88 10^6/uL (3.5-6.1); RED CELL DISTRIBUTION WIDTH 12.5 % (11.5-14.5); WHITE BLOOD COUNT 7.2 10^3/ul (4.5-11.0)
[2017-09-12 07:58] VITALS: BP 110/62; PULSE 65; RESP 20; O2SAT 98
[2017-09-12 07:59] VITALS: TEMP 98.2
== END 2017-09-12 12:16 | disposition home or self-care (01) ==
LOC: ED 16:46 → ERH 20:57 → 5RSO 09-11 00:23
PROVIDERS: ADMIT Internal Medicine; ATTEND Internal Medicine
DX: K52.9 Noninfective gastroenteritis and colitis, unspecified (principal); F10.10 Alcohol abuse, uncomplicated; F12.90 Cannabis use, unspecified, uncomplicated; F17.210 Nicotine dependence, cigarettes, uncomplicated; Z83.79 Family history of other diseases of the digestive system; F11.11 Opioid abuse, in remission
CPT/HCPCS: 36415; 71045; 74177; 80053; 80074; 81001; 83690; 83735; 84100; 85025; 85610; 87040; 87086; 87389; 93005; 96361; 96365; 96366; 96367; 96372; 96375; 96376; 99284; C9113; G0378; J1644; J1885; J2405; J7040; Q9967